=== PATIENT | male | born 1940 | race Caucasian/White ===

== ENCOUNTER 2016-09-21 17:37 | Emergency (ER) | payer MEDICARE, OTHER ==
[2016-09-21 18:23] VITALS: O2SAT 95
--- NOTE | 2016-09-21 18:58 | RAD ---
EXAM DESCRIPTION: Hand,Left 3 Views CLINICAL HISTORY: pain,bruising,swelling COMPARISON: None FINDINGS: AP, lateral and oblique views of the left hand were submitted. There is narrowing of the interphalangeal joints. There is atherosclerosis. There is no discrete acute fracture or dislocation. Bone mineralization is within normal limits. 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
[2016-09-21] MEDS ORDERED: HYDROcodone 7.5MG/APAP 325MG 1 EA TAB PO ONE (19:13)
--- NOTE | 2016-09-21 19:15 | ED.PDOC ---
History of Present Illness - General Chief Complaint: Upper Extremity Injury Stated Complaint: left hand pain Time Seen by Provider: 09/21/16 18:49 Source: patient, family Exam Limitations: no limitations - History of Present Illness Initial Comments: the patient is a 76-year-old male who fell backward about 1-1/2 days ago and has been having pain in his fourth and fifth digit of his left hand since. He has some swelling over the entirety of the digits as well as the proximal hand. There is no crepitus. There is no gross deformity otherwise. He appears to be neurovascularly intact. There is a subungual hematoma on the fourth digit that is no longer bleeding. No other injuries from the fall. No wrist elbow or shoulder injury. Occurred: yesterday Method of Injury: fell Improving Factors: immobilization Worsening Factors: movement Allergies/Adverse Reactions: Allergies NO KNOWN ALLERGY Allergy (Verified 09/21/16 18:23) Home Medications: Ambulatory Orders ALPRAZolam [Xanax] 1 - 2 mg PO BEDTIME 09/21/16 Ygkxaiozodjxt-Harm-Yhesystjmb [Fioricet] 1 ea PO Q8H PRN #21 tab 09/21/16 Albuterol Sulfate [Proair Hfa] 2 inh IN QID 09/21/16 Allopurinol [Zyloprim] 300 mg PO DAILY 09/21/16 Amantadine HCl [Symmetrel] 100 mg PO BID 09/21/16 Aspirin [Shiraz Low Dose] 81 mg PO DAILY 09/21/16 Atorvastatin Calcium [Lipitor] 40 mg PO DAILY 09/21/16 Clonazepam 1.5 mg PO TID 09/21/16 Colestipol HCl 2 gm PO BID 09/21/16 Finasteride 5 mg PO BEDTIME 09/21/16 Gabapentin 800 mg PO BEDTIME 09/21/16 Metoprolol Tartrate 50 mg PO DAILY 09/21/16 Multiple Vitamins W/ Minerals [Centrum Silver] 1 tab PO DAILY 09/21/16 Nitroglycerin [Nitrostat] 0.4 mg SL PRN 09/21/16 Pantoprazole Sodium 40 mg PO DAILY 09/21/16 Prednisone [Deltasone] 60 mg PO DAILY 09/21/16 Warfarin Sodium 10 mg PO BEDTIME 09/21/16 Review of Systems - Review of Systems Review of Systems: 03/01/17 19:15 changes from baseline: Constitutional: States: no symptoms reported EENTM: States: no symptoms reported Respiratory: States: no symptoms reported Cardiology: States: no symptoms reported Gastrointestinal/Abdominal: States: no symptoms reported Genitourinary: States: no symptoms reported Musculoskeletal: States: see HPI Skin: States: no symptoms reported Neurological: States: no symptoms reported Endocrine: States: no symptoms reported All other Systems: No Change from Baseline Past Medical History (General) - Patient Medical History Hx Cardiac Disorders: Yes - Atrial fib Surgical History: cholecystectomy - Vaccination History Hx Influenza Vaccination: Yes Hx Pneumococcal Vaccination: Yes - Social History Hx Tobacco Use: No Family Medical History - Family History Father Family History: Unknown Living Status: Physical Exam - Physical Exam General Appearance: Alert, Comfortable, No apparent distress Eyes, Ears, Nose, Throat Exam: PERRL/EOMI Cardiovascular/Respiratory: normal peripheral pulses, no respiratory distress Shoulder Exam: non-tender, no evidence of injury, normal ROM Elbow/Forearm Exam: normal inspection, non-tender, no evidence of injury, normal ROM Wrist Exam: normal inspection, non-tender, no evidence of injury, normal ROM Hand Exam: ecchymosis, soft tissue tenderness, stiffness, swelling Neuro/Tendon: normal sensation, normal motor functions, normal tendon functions Mental Status: alert, oriented x 3 Skin Exam: normal color - ith the exception of mild bruising Comments: Vital Signs - 24 hr 09/21/16 18:19 Temperature 97 F L Pulse Rate [ 91 H Left Brachial] Respiratory 16 Rate Blood Pressure 130/77 [Left Arm] O2 Sat by Pulse 95 Oximetry Progress - Progress Progress: 09/21/16 19:16 the patient is a 76-year-old male that sustained soft tissue injury to the left hand after a fall primarily in the region of the fourth and fifth digit. He does have a small hemorrhage under the nail of the fourth digit that is hemostatic at this time. X-ray shows no evidence of current dislocation or fracture. The patient can take ibuprofen for discomfort and he will be written for some Fioricet for as needed use. His Ring did have to be removed secondary to swelling on the fourth digit. return to the emergency room for any acute worsening. Departure - Departure Clinical Impression: Sprain and strain of hand Disposition: Discharge to Home or Self Care Condition: Fair Departure Forms: ED Discharge - Pt. Copy, Patient Portal Self Enrollment Instructions: Finger Sprain Diet: regular diet Activity: increase activity as tolerated Referrals: David Vega MD [Primary Care Provider] - 1-2 Weeks Prescriptions: Sxwrthkmunohb-Vuud-Kcxtooghot [Fioricet] 1 ea PO Q8H PRN #21 tab PRN Reason: Pain Home Medications: Ambulatory Orders ALPRAZolam [Xanax] 1 - 2 mg PO BEDTIME 09/21/16 Hyygndpehmumr-Bxas-Wxoupqfrpk [Fioricet] 1 ea PO Q8H PRN #21 tab 09/21/16 Albuterol Sulfate [Proair Hfa] 2 inh IN QID 09/21/16 Allopurinol [Zyloprim] 300 mg PO DAILY 09/21/16 Amantadine HCl [Symmetrel] 100 mg PO BID 09/21/16 Aspirin [Shiraz Low Dose] 81 mg PO DAILY 09/21/16 Atorvastatin Calcium [Lipitor] 40 mg PO DAILY 09/21/16 Clonazepam 1.5 mg PO TID 09/21/16 Colestipol HCl 2 gm PO BID 09/21/16 Finasteride 5 mg PO BEDTIME 09/21/16 Gabapentin 800 mg PO BEDTIME 09/21/16 Metoprolol Tartrate 50 mg PO DAILY 09/21/16 Multiple Vitamins W/ Minerals [Centrum Silver] 1 tab PO DAILY 09/21/16 Nitroglycerin [Nitrostat] 0.4 mg SL PRN 09/21/16 Pantoprazole Sodium 40 mg PO DAILY 09/21/16 Prednisone [Deltasone] 60 mg PO DAILY 09/21/16 Warfarin Sodium 10 mg PO BEDTIME 09/21/16 Additional Instructions: the patient is a 76-year-old male that sustained soft tissue injury to the left hand after a fall primarily in the region of the fourth and fifth digit. He does have a small hemorrhage under the nail of the fourth digit that is hemostatic at this time. X-ray shows no evidence of current dislocation or fracture. The patient can take ibuprofen for discomfort and he will be written for some Fioricet for as needed use. His Ring did have to be removed secondary to swelling on the fourth digit. return to the emergency room for any acute worsening.
[2016-09-21 19:37] VITALS: BP 121/72; TEMP 98
== END 2016-09-21 19:38 | disposition home or self-care (01) ==
LOC: ER 17:37
DX: S63.92XA Sprain of unspecified part of left wrist and hand, initial encounter (principal); I48.91 Unspecified atrial fibrillation; Z79.82 Long term (current) use of aspirin; Z79.899 Other long term (current) drug therapy; Z79.01 Long term (current) use of anticoagulants; W19.XXXA Unspecified fall, initial encounter

== ENCOUNTER → 2016-10-25 | Outpatient (CLI) | payer MEDICARE, OTHER | END | disposition home or self-care (01) | LOC: GMAB 10:48 | PROVIDERS: ATTEND Family Medicine | DX: R97.20 Elevated prostate specific antigen [PSA] (principal); I10 Essential (primary) hypertension | CPT/HCPCS: 84443; G0103 ==

== ENCOUNTER → 2016-12-12 | Outpatient (CLI) | payer MEDICARE, OTHER | LOC: LAB.O 10:15 | PROVIDERS: ATTEND Family Medicine | DX: G20 Parkinson's disease (principal); I48.91 Unspecified atrial fibrillation; R26.9 Unspecified abnormalities of gait and mobility; R41.82 Altered mental status, unspecified; M79.A9 Nontraumatic compartment syndrome of other sites; M35.9 Systemic involvement of connective tissue, unspecified; M79.1 Myalgia; M81.8 Other osteoporosis without current pathological fracture; M35.3 Polymyalgia rheumatica; M06.9 Rheumatoid arthritis, unspecified; E86.9 Volume depletion, unspecified; M35.00 Sjogren syndrome, unspecified; M32.10 Systemic lupus erythematosus, organ or system involvement unspecified; M31.6 Other giant cell arteritis; G25.89 Other specified extrapyramidal and movement disorders ==

== ENCOUNTER → 2016-12-13 | Outpatient (CLI) | payer MEDICARE, OTHER ==
--- NOTE | 2016-12-14 08:22 | MRI ---
EXAM DESCRIPTION: Brain w/oContrast CLINICAL HISTORY: [place] COMPARISON: None available TECHNIQUE: Non contrast MRI of the brain is performed according to our usual protocol including multiplanar multi sequence technique. FINDINGS: No hemorrhage, mass effect, diffusion restriction, or acute infarction is present.There is normal configuration of the ventricles. Involutional changes noted. Evidence of an old right high convexity distribution infarct. No abnormal extra-axial fluid collections are present.Normal flow voids are present. The calvarium is intact. Visualized paranasal sinuses and mastoid air cells are clear. 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 The midbrain appears unremarkable on today's exam. Electronically signed by: Van Aburto MD 12/14/2016 8:22 AM CDT
== END | disposition home or self-care (01) ==
LOC: MRI 10:53
PROVIDERS: ATTEND Family Medicine
DX: G20 Parkinson's disease (principal)

== ENCOUNTER → 2017-11-20 | Outpatient (CLI) | payer MEDICARE, OTHER | LOC: GMAB 10:53 | PROVIDERS: ATTEND Family Medicine | DX: I10 Essential (primary) hypertension (principal); Z12.5 Encounter for screening for malignant neoplasm of prostate | CPT/HCPCS: 84443; G0103 ==

== ENCOUNTER → 2018-04-05 | Outpatient (CLI) | payer MEDICARE, OTHER | LOC: GMAE 14:50 | PROVIDERS: ATTEND Family Medicine | DX: G60.3 Idiopathic progressive neuropathy (principal); G60.9 Hereditary and idiopathic neuropathy, unspecified ==

== ENCOUNTER → 2018-04-18 | Outpatient (CLI) | payer MEDICARE, OTHER | LOC: GMAE 10:53 | PROVIDERS: ATTEND Family Medicine | DX: R94.5 Abnormal results of liver function studies (principal) ==

== ENCOUNTER → 2018-04-19 | Outpatient (CLI) | payer MEDICARE, OTHER | LOC: GMAE 13:33 | PROVIDERS: ATTEND Family Medicine | DX: R06.02 Shortness of breath (principal); I48.91 Unspecified atrial fibrillation ==

== ENCOUNTER → 2018-04-25 | Outpatient (CLI) | payer MEDICARE, OTHER ==
--- NOTE | 2018-04-25 15:46 | CT ---
EXAM DESCRIPTION: Chest w/o Contrast CLINICAL HISTORY: SOB COMPARISON: None available TECHNIQUE: Chest CT was performed without IV contrast. This exam was performed according to our departmental dose-optimization program, which includes automated exposure control, adjustment of the mA and/or kV according to patient size and/or use of iterative reconstruction technique. FINDINGS: The thyroid and thoracic inlet unremarkable. Mural calcifications are noted in the thoracic aorta and coronary arteries. No thoracic aortic aneurysm. The main pulmonary artery is not dilated. No pleural or pericardial effusion. Limited sensitivity for detection of adenopathy due to lack of IV contrast, but no mediastinal or hilar adenopathy is seen. The central airways are clear. There is scarring in the lung apices. No airspace consolidation or lung mass. There is a calcified granuloma posteriorly in the right lung base with dependent atelectasis or scarring in both lung bases, slightly worse on the right side. No suspicious lung nodule is seen. The gallbladder is surgically absent. Visualized portions of the upper abdomen are otherwise unremarkable for noncontrast technique. Degenerative changes are noted in the thoracic spine at multiple levels. IMPRESSION: Coronary artery calcifications, evidence of old healed granulomatous disease and scarring or atelectasis in both lung bases, but no additional intrathoracic abnormality to explain patient's symptoms. Electronically signed by: Feliz Dickens MD 04/25/2018 3:45 PM CDT
== END ==
LOC: RAD 11:21
PROVIDERS: ATTEND Family Medicine
DX: R06.02 Shortness of breath (principal); I25.10 Atherosclerotic heart disease of native coronary artery without angina pectoris

== ENCOUNTER → 2018-05-03 | Outpatient (CLI) | payer MEDICARE, OTHER | LOC: GMAE 12:04 | PROVIDERS: ATTEND Family Medicine | DX: R06.02 Shortness of breath (principal) ==

== ENCOUNTER → 2018-06-19 | Outpatient (CLI) | payer MEDICARE, OTHER | LOC: GMAE 11:45 | PROVIDERS: ATTEND Family Medicine | DX: E83.42 Hypomagnesemia (principal) ==

== ENCOUNTER → 2018-06-21 | Outpatient (CLI) | payer MEDICARE, OTHER ==
--- NOTE | 2018-06-21 21:37 | US ---
EXAM DESCRIPTION: Extremity,Lower Stevo Arteries: Ultrasound. CLINICAL HISTORY: I70.213 COMPARISON: None. TECHNIQUE: Doppler evaluation of the bilateral lower extremity arterial flow waveforms and velocities. FINDINGS: Arterial waveforms in the right lower extremity are triphasic in the right common femoral artery, right superficial femoral artery, right popliteal artery, and right dorsalis pedis artery. Biphasic in the right peroneal artery. Blunted monophasic in the right posterior tibial artery.. Arterial waveforms in the left lower extremity are Triphasic in the left common femoral artery, left superficial femoral artery, and left popliteal artery. Biphasic in the left peroneal artery and left posterior tibial artery. Monophasic and blunted in the left dorsalis pedis artery.. Comments: Significant velocity loss in the left peroneal artery compared to the right. Also in the left dorsalis pedis artery compared to the right Significant velocity loss in the right posterior tibial artery compared to the left. IMPRESSION: Findings suggest significant lesion in the left proximal peroneal artery or lesion in the common peroneal posterior tibial trunk resulting in elevated velocity in the posterior tibial artery. Also possible stenotic lesions in the right posterior tibial artery and the left anterior tibial/dorsalis pedis artery. Consider follow-up CTA of the abdomen and lower extremities. Electronically signed by: Phu Morin MD 06/21/2018 9:36 PM MARITIME GUARD
== END ==
LOC: US 10:00
PROVIDERS: ATTEND Family Medicine
DX: I70.213 Atherosclerosis of native arteries of extremities with intermittent claudication, bilateral legs (principal)

== ENCOUNTER → 2019-02-28 | Outpatient (CLI) | payer MEDICARE, OTHER | LOC: GMAE 10:43 | PROVIDERS: ATTEND Family Medicine | DX: E53.8 Deficiency of other specified B group vitamins (principal); I48.91 Unspecified atrial fibrillation ==

== ENCOUNTER → 2019-04-18 | Outpatient (CLI) | payer MEDICARE, OTHER | LOC: GMAE 10:18 | PROVIDERS: ATTEND Family Medicine | DX: E53.8 Deficiency of other specified B group vitamins (principal); R53.82 Chronic fatigue, unspecified ==

== ENCOUNTER → 2019-06-05 | Outpatient (CLI) | payer MEDICARE, OTHER | LOC: GMAE 10:36 | PROVIDERS: ATTEND Family Medicine | DX: E53.8 Deficiency of other specified B group vitamins (principal); I48.91 Unspecified atrial fibrillation ==

== ENCOUNTER → 2019-12-11 | Outpatient (CLI) | payer MEDICARE, OTHER | LOC: GMAE 11:34 | PROVIDERS: ATTEND Family Medicine | DX: I10 Essential (primary) hypertension (principal); I48.91 Unspecified atrial fibrillation; E78.2 Mixed hyperlipidemia ==

== ENCOUNTER 2020-03-29 12:32 | Emergency (ER) | payer MEDICARE, OTHER ==
--- NOTE | 2020-03-29 13:48 | CT ---
EXAM DESCRIPTION: Head CLINICAL HISTORY: 79 years, Male, headache COMPARISON: March 20, 2020 TECHNIQUE: Head CT was performed without IV contrast. This exam was performed according to our departmental dose-optimization program, which includes automated exposure control, adjustment of the mA and/or kV according to patient size and/or use of iterative reconstruction technique. FINDINGS: Acute or subacute subdural hemorrhage in the right middle cranial fossa, decreased in amount from March 20, 2020. Suspect small amount of hemorrhage layering along the tentorium with a tiny amount of intraparenchymal hemorrhage in the right temporal lobe, also decreased from the prior exam. No additional intracranial hemorrhage. No intraventricular blood. Slight leftward midline shift at the 3 mm, stable. Generalized volume loss, likely age-related with mild ex vacuo prominence of the ventricles, stable. Old infarct in the right cerebellar hemisphere. No new posterior fossa lesion. Chronic ischemic microvascular changes in the periventricular white matter without cortical infarct. Vascular calcifications. No mastoid air cell effusion. The paranasal sinuses and orbits are unremarkable. No calvarial fracture. IMPRESSION: Small amount of acute or subacute hemorrhage in the right middle cranial fossa layering along the tentorium as detailed above, decreased in amount from March 20, 2020. 3 mm right to left midline shift, stable. No new abnormality or other significant interval change. Findings were reported by telephone to the emergency room nurse, Ximena, by me at the time of this report. She acknowledged understanding and will relay findings to the ordering physician. Electronically signed by: Feliz Dickens MD 03/29/2020 1:46 PM CDT
--- NOTE | 2020-03-29 14:04 | ED.PDOC ---
History of Present Illness - General Chief Complaint: Headache Stated Complaint: Intermittent headache, prior trauma O/A 03/14 Time Seen by Provider: 03/29/20 12:38 Source: patient, RN notes reviewed, Vital Signs reviewed, family - daughter - History of Present Illness Initial Comments: Patient is a 79-year-old white male who presents with complaints of headache. Patient was seen here approximately 2 weeks ago and diagnosed with a sub-dural hematoma and was flown out to [facility]. Apparently patient had fallen 6 days prior and this is what caused his hematoma. Patient was concerned that he had another bleed. The headache was throbbing in nature, improved with an ice pack, worse with getting up and walking around, no radiation of the pain. It was moderate in intensity Timing/Duration: 1-3 hours Severity: moderate Improving Factors: cold therapy Worsening Factors: movement Associated Symptoms: headaches Allergies/Adverse Reactions: Allergies NO KNOWN ALLERGY Allergy (Verified 03/29/20 12:48) Home Medications: Ambulatory Orders ALPRAZolam [Xanax] 1 - 2 mg PO BEDTIME 09/21/16 Dboxxvphmeqtz-Uquo-Zxvhviiaua [Fioricet] 1 ea PO Q8H PRN #21 tab 09/21/16 Albuterol Sulfate [Proair Hfa] 2 inh IN QID 09/21/16 Allopurinol [Zyloprim] 300 mg PO DAILY 09/21/16 Amantadine HCl [Symmetrel] 100 mg PO BID 09/21/16 Aspirin [Shiraz Low Dose] 81 mg PO DAILY 09/21/16 Atorvastatin Calcium [Lipitor] 40 mg PO DAILY 09/21/16 Clonazepam 1.5 mg PO TID 09/21/16 Colestipol HCl 2 gm PO BID 09/21/16 Finasteride 5 mg PO BEDTIME 09/21/16 Gabapentin 800 mg PO BEDTIME 09/21/16 Metoprolol Tartrate 50 mg PO DAILY 09/21/16 Multiple Vitamins W/ Minerals [Centrum Silver] 1 tab PO DAILY 09/21/16 Nitroglycerin [Nitrostat] 0.4 mg SL PRN 09/21/16 Pantoprazole Sodium 40 mg PO DAILY 09/21/16 Prednisone [Deltasone] 60 mg PO DAILY 09/21/16 Warfarin Sodium 10 mg PO BEDTIME 09/21/16 Cephalexin 1,000 mg PO BID 5 Days #20 cap 03/09/18 Review of Systems - Review of Systems Constitutional: States: see HPI. Denies: chills, fever, malaise, weakness EENTM: States: no symptoms reported. Denies: eye pain, blurred vision, double vision Respiratory: States: no symptoms reported. Denies: cough, orthopnea, short of breath, stridor, wheezing Cardiology: States: no symptoms reported. Denies: chest pain, palpitations, syncope Gastrointestinal/Abdominal: States: no symptoms reported. Denies: abdominal pain, diarrhea, nausea, vomiting Genitourinary: States: no symptoms reported Musculoskeletal: States: no symptoms reported. Denies: back pain, joint pain, neck pain Skin: States: no symptoms reported. Denies: change in color, rash Neurological: States: no symptoms reported, headache. Denies: tingling, tremors, weakness Endocrine: States: no symptoms reported Hematologic/Lymphatic: States: no symptoms reported All other Systems: No Change from Baseline Past Medical History (General) - Patient Medical History Hx Stroke: Yes Hx Asthma: Yes Hx Cardiac Disorders: Yes - Atrial fib Hx Congestive Heart Failure: No Hx Diabetes: No Hx Gastroesophageal Reflux: Yes Hx Cancer: Yes - Melanoma Hx MRSA: No Surgical History: other - Vaccination History Hx Influenza Vaccination: Yes Hx Pneumococcal Vaccination: Yes - Social History Hx Tobacco Use: No Hx Alcohol Use: Yes Hx Substance Use: No Hx Substance Use Treatment: No Hx Depression: No Hx Physical Abuse: No Hx Emotional Abuse: No - Female History Patient is a Female of Child Bearing Age (10 -59 yrs old): No Patient : No Family Medical History - Family History Father Family History: Unknown Living Status: Physical Exam - Physical Exam General Appearance: Alert, Anxious, Comfortable, Well Developed, Well Groomed, Well Hydrated, Well Nourished Eye Exam: bilateral normal Ears, Nose, Throat: hearing grossly normal, normal ENT inspection, normal pharynx Neck: non-tender, full range of motion, supple Respiratory: chest non-tender, lungs clear, normal breath sounds, no respiratory distress, no accessory muscle use Cardiovascular/Chest: normal peripheral pulses, regular rate, rhythm, no edema, no gallop, no JVD, no murmur Peripheral Pulses: radial,right: 2+, radial,left: 2+ Gastrointestinal/Abdominal: normal bowel sounds, non tender, soft, no organomegaly, no pulsatile mass Back Exam: normal inspection, no CVA tenderness, no vertebral tenderness Neurologic: filter tank tender II-XII nml as tested, no motor/sensory deficits, alert, normal mood/affect, oriented x 3 Skin Exam: normal color, warm/dry Lymphatic: no adenopathy Progress - Progress Progress: Differential diagnosis: CVA, recurrent cerebral bleed, migraine headache, medication reaction among others. 03/29/20 14:09 Patient's headache has resolved with the ice pack. CT scan shows improving swelling and less bleeding in the brain. As there was no new bleeding, plan on discharge home with follow-up with PCP and neurology. I discussed this plan of care with the patient and his daughter and they voiced understanding and agreement. Miles Brandt M.D. #[id number] - Results/Orders Results/Orders: EXAM DESCRIPTION: Head CT CLINICAL HISTORY: 79 years, Male, headache COMPARISON: March 20, 2020 TECHNIQUE: Head CT was performed without IV contrast. This exam was performed according to our departmental dose-optimization program, which includes automated exposure control, adjustment of the mA and/or kV according to patient size and/or use of iterative reconstruction technique. FINDINGS: Acute or subacute subdural hemorrhage in the right middle cranial fossa, decreased in amount from March 20, 2020. Suspect small amount of hemorrhage layering along the tentorium with a tiny amount of intraparenchymal hemorrhage in the right temporal lobe, also decreased from the prior exam. No additional intracranial hemorrhage. No intraventricular blood. Slight leftward midline shift at the 3 mm, stable. Generalized volume loss, likely age-related with mild ex vacuo prominence of the ventricles, stable. Old infarct in the right cerebellar hemisphere. No new posterior fossa lesion. Chronic ischemic microvascular changes in the periventricular white matter without cortical infarct. Vascular calcifications. No mastoid air cell effusion. The paranasal s inuses and orbits are unremarkable. No calvarial fracture. IMPRESSION: Small amount of acute or subacute hemorrhage in the right middle cranial fossa layering along the tentorium as detailed above, decreased in amount from March 20, 2020. 3 mm right to left midline shift, stable. No new abnormality or other significant interval change. Findings were reported by telephone to the emergency room nurse, Ximena, by me at the time of this report. She acknowledged understanding and will relay findings to the ordering physician. Electronically signed by: Feliz Dickens MD 03/29/2020 1:46 PM CDT Vital Signs 03/29/20 03/29/20 12:32 12:47 Temperature 97.3 F L Pulse Rate [ 80 80 Pulse ox] Respiratory 16 16 Rate Blood Pressure 142/92 [R arm] O2 Sat by Pulse 98 Oximetry - EKG/XRAY/CT CT Ordered: Yes Departure - Departure Clinical Impression: Intracranial bleeding Headache Qualifiers: Headache type: unspecified Headache chronicity pattern: acute headache Intractability: not intractable Qualified Code(s): R51 - Headache Time of Disposition: 14:11 Disposition: Discharge to Home or Self Care Condition: Good Departure Forms: ED Discharge - Pt. Copy, Patient Portal Self Enrollment Instructions: DI for Headache, Headache, Adult (DC) Diet: resume usual diet Activity: increase activity as tolerated Referrals: KASSANDRA AYALA MD [Primary Care Provider] - 1-5 Days Home Medications: Ambulatory Orders ALPRAZolam [Xanax] 1 - 2 mg PO BEDTIME 09/21/16 Plsxqzmyxzkdj-Nfng-Bkmpvuoojw [Fioricet] 1 ea PO Q8H PRN #21 tab 09/21/16 Albuterol Sulfate [Proair Hfa] 2 inh IN QID 09/21/16 Allopurinol [Zyloprim] 300 mg PO DAILY 09/21/16 Amantadine HCl [Symmetrel] 100 mg PO BID 09/21/16 Aspirin [Shiraz Low Dose] 81 mg PO DAILY 09/21/16 Atorvastatin Calcium [Lipitor] 40 mg PO DAILY 09/21/16 Clonazepam 1.5 mg PO TID 09/21/16 Colestipol HCl 2 gm PO BID 09/21/16 Finasteride 5 mg PO BEDTIME 09/21/16 Gabapentin 800 mg PO BEDTIME 09/21/16 Metoprolol Tartrate 50 mg PO DAILY 09/21/16 Multiple Vitamins W/ Minerals [Centrum Silver] 1 tab PO DAILY 09/21/16 Nitroglycerin [Nitrostat] 0.4 mg SL PRN 09/21/16 Pantoprazole Sodium 40 mg PO DAILY 09/21/16 Prednisone [Deltasone] 60 mg PO DAILY 09/21/16 Warfarin Sodium 10 mg PO BEDTIME 09/21/16 Cephalexin 1,000 mg PO BID 5 Days #20 cap 03/09/18
[2020-03-29 14:30] VITALS: BP 116/71; TEMP 96.4; O2SAT 97
== END 2020-03-29 14:30 | disposition home or self-care (01) ==
LOC: ER 12:32
DX: S06.5X0D Traumatic subdural hemorrhage without loss of consciousness, subsequent encounter (principal); R51 Headache; J45.909 Unspecified asthma, uncomplicated; I48.91 Unspecified atrial fibrillation; K21.9 Gastro-esophageal reflux disease without esophagitis; W19.XXXD Unspecified fall, subsequent encounter; Z86.73 Personal history of transient ischemic attack (TIA), and cerebral infarction without residual deficits; Z79.899 Other long term (current) drug therapy; Z79.01 Long term (current) use of anticoagulants; Z79.82 Long term (current) use of aspirin; Z85.820 Personal history of malignant melanoma of skin; Y92.9 Unspecified place or not applicable

== ENCOUNTER → 2020-04-24 | Outpatient (CLI) | payer MEDICARE, OTHER ==
--- NOTE | 2020-04-26 16:05 | CT ---
EXAM DESCRIPTION: CT-Head CLINICAL HISTORY: SUBDURAL HEMATOMA COMPARISON: 03/29/2020 TECHNIQUE: Multiple axial images of the head without contrast. Multiplanar reformatted images. This exam was performed according to our departmental dose-optimization program, which includes automated exposure control, adjustment of the mA and/or kV according to patient size and/or use of iterative reconstruction technique. FINDINGS: There is no CT evidence of intracranial hemorrhage, mass effect, or large territory infarction. Previously seen right middle cranial fossa subdural hematoma and hemorrhage along the tentorium has essentially resolved. Moderate generalized volume loss. Moderate patchy supratentorial white matter hypodensities. Chronic right cerebellar infarct. There are no abnormal extra-axial fluid collections. Calcific plaque in the visualized arteries. There is no acute calvarial defect. The visualized paranasal sinuses and the mastoids are clear. IMPRESSION: 1. No acute intracranial abnormality. Previously intracranial hemorrhage in the right middle cranial fossa and along the tentorium has resolved. 2. Senescent changes. 3. Right cerebellar infarct with encephalomalacia. Electronically signed by: Nick Salomon MD 04/26/2020 4:04 PM CDT
== END ==
LOC: CT 13:16
PROVIDERS: ATTEND Neurological Surgery
DX: I62.00 Nontraumatic subdural hemorrhage, unspecified (principal); G31.9 Degenerative disease of nervous system, unspecified; G93.89 Other specified disorders of brain

== ENCOUNTER → 2020-06-02 | Outpatient (CLI) | payer MEDICARE, OTHER | LOC: BFHH 14:40 | PROVIDERS: ATTEND Family Medicine | DX: E53.8 Deficiency of other specified B group vitamins (principal); R73.09 Other abnormal glucose; I10 Essential (primary) hypertension; G60.3 Idiopathic progressive neuropathy; I27.0 Primary pulmonary hypertension; G61.81 Chronic inflammatory demyelinating polyneuritis; G70.00 Myasthenia gravis without (acute) exacerbation ==

== ENCOUNTER → 2020-07-20 | Outpatient (CLI) | payer MEDICARE, OTHER ==
--- NOTE | 2020-07-21 00:40 | CT ---
EXAM DESCRIPTION: Head CLINICAL HISTORY: 80 years Male, ORTHOSTATIC HYPOTENSION COMPARISON: CT head 04/24/2020. TECHNIQUE: Axial images obtained from the skull base to the vertex without intravenous contrast with images. Coronal and sagittal reformations provided. This exam was performed according to our departmental dose-optimization program, which includes automated exposure control, adjustment of the mA and/or kV according to patient size and/or use of iterative reconstruction technique. Time Last Seen Well (If known) for Code Stroke: n/a FINDINGS: Brain Parenchyma, ventricles, meninges, and extra-axial spaces: Mild generalized cerebral atrophy. Mild Nonspecific white matter hypodensities in the cerebral hemispheres likely related to ischemic small vessel disease. Possible difficulty differentiating a small acute infarction given these hypodensities. No acute hemorrhage. Chronic encephalomalacia superficial right cerebellum. Encephalomalacia within the anterior right temporal lobe. No abnormal extra-axial fluid collection. Vascular: Atherosclerosis is within the carotid siphons. Calvarium, paranasal sinuses, mastoids, and orbits: Calvarium intact. Visualized paranasal sinuses and mastoid air cells clear. Bilateral lens replacement. IMPRESSION: 1. No acute intracranial abnormality. 2. Senescent changes. 2. Chronic infarctions superficial right cerebellum. There is also now encephalomalacia within the anterior right temporal lobe status post resolution of previous hemorrhage at this location. 4. No significant interval change from 04/24/2020. 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
== END ==
LOC: GMAE 12:27
PROVIDERS: ATTEND Family Medicine
DX: I95.1 Orthostatic hypotension (principal); G31.1 Senile degeneration of brain, not elsewhere classified; I63.9 Cerebral infarction, unspecified; G93.89 Other specified disorders of brain